=== PATIENT | female | born 1975 | race Caucasian/White ===

== ENCOUNTER 2018-01-04 11:59 | Day surgery (SDC) | payer OTHER, SELFPAY ==
[2017-12-31 14:58] VITALS: BMI 26.2
[2018-01-04] VITALS (8 sets, daily range): BP systolic 111–131; BP diastolic 65–80; PULSE 66–90; RESP 12–18; TEMP 36.3–37.1; O2SAT 98–100; BMI 25.5
--- NOTE | 2018-01-04 | PATH_ITS ---
[facility] Accession Number: [id number] . 01 Material submitted: . UTERINE FIBROID . 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 Negative for malignant features. [facility]/01/07/2018 . 02 Electronically signed: . Wero Monahan MD, PhD, Pathologist NPI- [id number] . 01 Gross description: . Received in formalin, labeled uterine fibroid, is a nolan-white, solid, firm, well-circumscribed nodule (6 g, 3.2 x 2.0 x 1.5 cm) with a white, whorled, homogenous cut surface. Sat Tutor serial sections are submitted in cassettes A1 and A2. ([id number]) /FRR . 02 Pathologist provided ICD-10: D25.9 . 02 CPT . 170311 Specimen Comment: A duplicate report has been generated due to demographic updates. Performed at: 01 [facility] [address] [facility], [place], [place] [id number] MD Noah Ron MD Phone: [phone] Performed at: 02 [facility] [address] [place], [place] [id number] MD Xander Shi MD Phone: [phone]
--- NOTE | 2018-01-04 12:29 | SUR.OPER ---
Lithotomy on padded OR bed, head on pillow, arms secured on padded arm boards at <90 degrees abduction. Legs secured in padded yellow fins stirrups.
[2018-01-04] MEDS: LACTATED RINGERS 1,000 ML 42 ML IV (12:36)
[2018-01-04] MEDS: CEFOTETAN 2 GM/50 ML PIGGYBACK IV (12:52)
--- NOTE | 2018-01-04 13:41 | PM.GYNOP.1 ---
Operative Date/Time/Diagnoses Date of procedure: 01/04/18 Time of procedure: 13:42 Pre-op diagnosis: Submucous myoma Menorrhagia Post-op diagnosis: same Procedure: Procedures Operation Date: 01/04/18 13:00 Actual Procedures Side Surgeon p Hysteroscopy D&C Pedro Adrian MD Indications: Menometrorrhagia Submucous myoma Surgeon: Pedro Adrian Anesthesia Type: General Operative Notes Findings: Submucous myoma 3 cm x 2 cm Closure Type: not applicable Specimen(s): other (Fibroid) Blood products transfused: none Procedure in detail: The patient is placed supine upon the operating table and anesthetized. She was then placed in the dorsal lithotomy position examined under anesthesia. Under anesthesia she was felt to have a normal uterus without masses. The patient was then draped and prepared in usual fashion. Posterior weighted retractor was set in place. Anterior lip the cervix tooth tenaculum. Uterine cavity sounded to 9 cm. Uterine cervix was dilated to a Hegar 12. The hysteroscope was introduced and a large submucous myoma was present arising from the fundus. The hysteroscope was withdrawn. The ring forceps and placed and the fibroid grasped. With a twisting action and pulling action the fibroid was removed without difficulty. There was minimal amount of bleeding. This posterior with a weighted retractor and tenaculum were removed. The patient was taken to the recovery room in satisfactory condition. Complications: none Post-operative Condition: stable Disposition: PACU Plan for aftercare: Office Dr. Hall two weeks
[2018-01-04] MEDS: OXYCODONE/ACETAMINOPHEN 5/325 TABLET 1 TAB PO (13:51)
== END 2018-01-04 14:54 | disposition home or self-care (01) ==
PROVIDERS: PCP Family Medicine
PROC: 0UDB8ZZ Extraction of Endometrium, Via Natural or Artificial Opening Endoscopic (ICD-10-PCS; CPT 58558; principal; 2018-01-04 13:00)
DX: D25.0 Submucous leiomyoma of uterus (principal)
CPT/HCPCS: 58558; J1100; J2250; J2405; J2704; J3010

== ENCOUNTER 2018-05-19 18:28 | Emergency (ER) | payer BC, SELFPAY ==
[2018-05-19 19:38] VITALS: BP 152/88; PULSE 103; RESP 18; TEMP 36.9; O2SAT 100; BMI 23.6
--- NOTE | 2018-05-19 19:46 | ED.URI ---
HPI - URI/Sore Throat <LOLIS Avila - Last Filed: 05/19/18 22:49> General Chief Complaint: Upper Respiratory Symptoms Stated Complaint: thinks she has pneumonia Time Seen by Provider: 05/19/18 19:03 Source: patient Mode of arrival: ambulatory Limitations: no limitations History of Present Illness HPI Narrative: 42-year-old healthy female that is a nonsmoker here for complaint of having cold/ flu like symptoms for the past 5-6 days. She states she has had a fever and chills. She has also had cough and nasal congestion. Generalized malaise. She is tolerating p.o. intake although she has had decreased appetite as of recently. She states she has been around her coworkers that have had similar symptoms. she denies any stressors or relievers of her symptoms. Related Data Home Medications Medication Instructions Recorded Confirmed VITAMIN D (Vitamin D3) 1,000 unit PO QDAY #0 01/09/12 04/01/18 ferrous gluconate 27 mg PO DAILY 01/04/18 04/01/18 Previous Rx's Medication Instructions Recorded L norgest/E estradiol-E estrad 1 tab PO DAILY #182 each 04/01/18 0.15 mg-30 mcg (84)/10 mcg(7) tabs,3mos Allergies Allergy/AdvReac Type Severity Reaction Status Date / Time measles, mumps, and rubella Allergy Unknown Unverified 04/01/18 10:29 vaccine [MEASLES, MUMPS, AND RUBELLA VACCINE] Review of Systems <LOLIS Avila - Last Filed: 05/19/18 22:49> Constitutional Reports body ache(s), Reports chills, Reports fever(s), Denies lethargy, Reports malaise and Denies weakness Eyes Denies change in vision, Denies eye discharge, Denies irritation and Denies loss of vision ENT Ears, Nose, Mouth, and Throat: Denies change in voice, Reports nasal congestion, Reports nasal discharge, Denies neck pain, Denies sore throat and Denies throat swelling Cardiovascular Denies chest pain, Denies irregular heart rhythm, Denies lightheadedness, Denies palpitations and Denies orthopnea Respiratory Reports cough and Denies wheezing Gastrointestinal Gastrointestinal: Denies abdominal pain, Denies change in bowel habits, Denies diarrhea, Denies nausea and Denies vomiting Genitourinary Denies hematuria, Denies flank pain, Denies urinary incontinence and Denies urinary urgency Musculoskeletal Denies neck pain Neurologic Denies confusion, Denies loss of vision and Denies weakness Psychiatric Denies anxiety, Denies confusion, Denies depression, Denies homicidal ideation and Denies suicidal ideation Endocrine Denies palpitations Allergic/Immunologic Denies urticaria, Denies throat swelling and Denies wheezing PFSH <LOLIS Avila - Last Filed: 05/19/18 22:49> Medical History Anemia (Resolved) Chicken pox (Resolved) Family History Grandfather Heart disease Grandmother Cancer Grandmother Mental health problem Social History household members: spouse and children Smoking Status: Never smoker alcohol intake: current Exam <LOLIS Avila - Last Filed: 05/19/18 22:49> Initial Vital Signs Initial Vital Signs: Vital Signs Temperature 98.4 F 05/19/18 19:38 Pulse Rate 103 H 05/19/18 19:38 Respiratory Rate 18 05/19/18 19:38 Blood Pressure 152/88 H 05/19/18 19:38 Pulse Oximetry 100 05/19/18 19:38 Const General: cooperative and well developed Nutritional Appearance: well nourished Orientation: alert, awake, oriented x3 and not confused HENLA Mouth: oral mucosae normal and moist mucous membranes Throat: posterior oropharynx normal Eyes Conjunctivae: conjunctivae normal Sclera: sclerae normal Pupils: PERRL EOM: EOM intact bilaterally Resp Effort & Inspection: normal respiratory effort, able to speak in complete sentences, no respiratory distress and no use of accessory muscles Auscultation: clear to auscultation bilaterally, no rales, no rhonchi and no wheezes Skin General: no rashes or lesions noted, No jaundice and No petechiae Neuro General: alert, oriented x3, gait normal and no focal motor deficits Speech: speech normal <Abena Mcfarlane DO - Last Filed: 05/20/18 02:50> Initial Vital Signs Initial Vital Signs: Vital Signs Temperature 98.4 F 05/19/18 19:38 Pulse Rate 103 H 05/19/18 19:38 Respiratory Rate 18 05/19/18 19:38 Blood Pressure 152/88 H 05/19/18 19:38 Pulse Oximetry 100 05/19/18 19:38 Course <LOLIS Avila - Last Filed: 05/19/18 22:49> Orders Ordered: ED Orders 05/19/18 19:47 XR chest 2V Stat 05/19/18 20:08 Influenza A and B by PCR Rapid Stat Vital Signs - 8 hr 05/19/18 19:38 05/19/18 20:28 05/19/18 20:58 Temperature 98.4 F 98.2 F Pulse Rate 103 H 81 Respiratory Rate 18 Blood Pressure 152/88 H Blood Pressure [Left Arm] 119/79 Pulse Oximetry 100 100 <Abena Mcfarlane DO - Last Filed: 05/20/18 02:50> Orders Ordered: ED Orders 05/19/18 19:47 XR chest 2V Stat 05/19/18 20:08 Influenza A and B by PCR Rapid Stat Vital Signs - 8 hr 05/19/18 19:38 05/19/18 20:28 05/19/18 20:58 Temperature 98.4 F 98.2 F Pulse Rate 103 H 81 Respiratory Rate 18 Blood Pressure 152/88 H Blood Pressure [Left Arm] 119/79 Pulse Oximetry 100 100 MDM - URI/Sore Throat <LOLIS Avila - Last Filed: 05/19/18 22:49> Lab Data Lab Results 05/19/18 Range/Units 20:08 Influenza A & B (PCR) Positive, type a A (Negative) Imaging Data Chest x-ray: Radiologist's impression: [address] [address] XRay Report Signed Patient: Jacqui Cho KMR#: [id number] : 1975Acct:[id number] Age/Sex: 42 / FDate of Service: 05/19/18 Loc: ED Accession Number: [id number] Procedure: XR chest 2V Ordering Provider: Elijah Vallejo PROCEDURE: XR CHEST 2V INDICATIONS: productive cough last several days TECHNIQUE: 2 views of the chest were acquired. COMPARISON: None. FINDINGS: Surgical changes and devices: None. Lungs and pleura: Lungs are clear. No pleural effusions or pneumothorax. Mediastinum: Mediastinal contours are normal. Heart size is normal. Bones and chest wall: No suspicious bony abnormalities. Soft tissues appear unremarkable. IMPRESSION: No acute process. Dictated by: Trini Valenzuela M.D. on 05/19/2018 at 19:59 Approved by: Trini Valenzuela M.D. on 05/19/2018 at 19:59 [facility] Narrative Medical decision making narrative: Chest x-ray was obtained and was negative for any acute findings. Influenza swab was obtained was positive for influenza A. plenty of fluids and rest. [id number]-[id number] Tylenol or Motrin as needed for any discomfort And fever. Saline irrigation and nasal passages and hot showers to help with nasal congestion. Follow up with primary care provider. Return emergency room for any worsening symptoms. <Abena Mcfarlane DO - Last Filed: 05/20/18 02:50> Lab Data Lab Results 05/19/18 Range/Units 20:08 Influenza A & B (PCR) Positive, type a A (Negative) Discharge Plan Departure Patient Disposition: Home Clinical Impression: Influenza Discharge Date/Time: 05/19/18 20:58 Interventions: ED Discharge Assessment Last Done: 05/19/18 20:58 Instructions: DI for Influenza -- Adult Activity Restrictions/Additional Instructions: Chest x-ray was obtained and was negative for any acute findings. Influenza swab was obtained was positive for influenza A. plenty of fluids and rest. Hlnn-lml-miqfzkc Tylenol or Motrin as needed for any discomfort And fever. Saline irrigation and nasal passages and hot showers to help with nasal congestion. Follow up with primary care provider. Return emergency room for any worsening symptoms. Prescriptions: No Action VITAMIN D (Vitamin D3) 1,000 unit PO QDAY Qty: 0 RF: 0 L norgest/e.estradiol-e.estrad [Seasonique] 0.15 mg-30 mcg (84)/10 mcg (7) tablets,dose pack,3 month 1 tab PO DAILY Qty: 182 RF: 2 ferrous gluconate 27 mg PO DAILY RF: 0 Referrals: Johanna Pearson DO [Primary Care Provider] - Stand Alone Forms: Work Release Note, Work/School Release <Abena Mcfarlane DO - Last Filed: 05/20/18 02:50> Cosign ED Attending Cossherryature Attestation: I was immediately available in the department for consultation. Documentation has been reviewed. I agree with assessment and plan.
[2018-05-19 20:28] VITALS: BP 119/79; PULSE 81; O2SAT 100
--- NOTE | 2018-05-19 20:45 | ED_ITS ---
HPI - URI/Sore Throat <LOLIS Avila - Last Filed: 05/19/18 22:49> General Chief Complaint: Upper Respiratory Symptoms Stated Complaint: thinks she has pneumonia Time Seen by Provider: 05/19/18 19:03 Source: patient Mode of arrival: ambulatory Limitations: no limitations History of Present Illness HPI Narrative: 42-year-old healthy female that is a nonsmoker here for complaint of having cold/ flu like symptoms for the past 5-6 days. She states she has had a fever and chills. She has also had cough and nasal congestion. Generalized malaise. She is tolerating p.o. intake although she has had decreased appetite as of recently. She states she has been around her coworkers that have had similar symptoms. she denies any stressors or relievers of her symptoms. Related Data Home Medications Medication Instructions Recorded Confirmed VITAMIN D (Vitamin D3) 1,000 unit PO QDAY #0 01/09/12 04/01/18 ferrous gluconate 27 mg PO DAILY 01/04/18 04/01/18 Previous Rx's Medication Instructions Recorded L norgest/E estradiol-E estrad 1 tab PO DAILY #182 each 04/01/18 0.15 mg-30 mcg (84)/10 mcg(7) tabs,3mos Allergies Allergy/AdvReac Type Severity Reaction Status Date / Time measles, mumps, and rubella Allergy Unknown Unverified 04/01/18 10:29 vaccine [MEASLES, MUMPS, AND RUBELLA VACCINE] Review of Systems <LOLIS Avila - Last Filed: 05/19/18 22:49> Constitutional Reports body ache(s), Reports chills, Reports fever(s), Denies lethargy, Reports malaise and Denies weakness Eyes Denies change in vision, Denies eye discharge, Denies irritation and Denies loss of vision ENT Ears, Nose, Mouth, and Throat: Denies change in voice, Reports nasal congestion, Reports nasal discharge, Denies neck pain, Denies sore throat and Denies throat swelling Cardiovascular Denies chest pain, Denies irregular heart rhythm, Denies lightheadedness, Denies palpitations and Denies orthopnea Respiratory Reports cough and Denies wheezing Gastrointestinal Gastrointestinal: Denies abdominal pain, Denies change in bowel habits, Denies diarrhea, Denies nausea and Denies vomiting Genitourinary Denies hematuria, Denies flank pain, Denies urinary incontinence and Denies urinary urgency Musculoskeletal Denies neck pain Neurologic Denies confusion, Denies loss of vision and Denies weakness Psychiatric Denies anxiety, Denies confusion, Denies depression, Denies homicidal ideation and Denies suicidal ideation Endocrine Denies palpitations Allergic/Immunologic Denies urticaria, Denies throat swelling and Denies wheezing PFSH <LOLIS Avila - Last Filed: 05/19/18 22:49> Medical History Anemia (Resolved) Chicken pox (Resolved) Family History Grandfather Heart disease Grandmother Cancer Grandmother Mental health problem Social History household members: spouse and children Smoking Status: Never smoker alcohol intake: current Exam <LOLIS Avila - Last Filed: 05/19/18 22:49> Initial Vital Signs Initial Vital Signs: Vital Signs Temperature 98.4 F 05/19/18 19:38 Pulse Rate 103 H 05/19/18 19:38 Respiratory Rate 18 05/19/18 19:38 Blood Pressure 152/88 H 05/19/18 19:38 Pulse Oximetry 100 05/19/18 19:38 Const General: cooperative and well developed Nutritional Appearance: well nourished Orientation: alert, awake, oriented x3 and not confused HENND Mouth: oral mucosae normal and moist mucous membranes Throat: posterior oropharynx normal Eyes Conjunctivae: conjunctivae normal Sclera: sclerae normal Pupils: PERRL EOM: EOM intact bilaterally Resp Effort & Inspection: normal respiratory effort, able to speak in complete sentences, no respiratory distress and no use of accessory muscles Auscultation: clear to auscultation bilaterally, no rales, no rhonchi and no wheezes Skin General: no rashes or lesions noted, No jaundice and No petechiae Neuro General: alert, oriented x3, gait normal and no focal motor deficits Speech: speech normal <Abena Mcfarlane DO - Last Filed: 05/20/18 02:50> Initial Vital Signs Initial Vital Signs: Vital Signs Temperature 98.4 F 05/19/18 19:38 Pulse Rate 103 H 05/19/18 19:38 Respiratory Rate 18 05/19/18 19:38 Blood Pressure 152/88 H 05/19/18 19:38 Pulse Oximetry 100 05/19/18 19:38 Course <LOLIS Avila - Last Filed: 05/19/18 22:49> Orders Ordered: ED Orders 05/19/18 19:47 XR chest 2V Stat 05/19/18 20:08 Influenza A and B by PCR Rapid Stat Vital Signs - 8 hr 05/19/18 19:38 05/19/18 20:28 05/19/18 20:58 Temperature 98.4 F 98.2 F Pulse Rate 103 H 81 Respiratory Rate 18 Blood Pressure 152/88 H Blood Pressure [Left Arm] 119/79 Pulse Oximetry 100 100 <Abena Mcfarlane DO - Last Filed: 05/20/18 02:50> Orders Ordered: ED Orders 05/19/18 19:47 XR chest 2V Stat 05/19/18 20:08 Influenza A and B by PCR Rapid Stat Vital Signs - 8 hr 05/19/18 19:38 05/19/18 20:28 05/19/18 20:58 Temperature 98.4 F 98.2 F Pulse Rate 103 H 81 Respiratory Rate 18 Blood Pressure 152/88 H Blood Pressure [Left Arm] 119/79 Pulse Oximetry 100 100 MDM - URI/Sore Throat <LOLIS Avila - Last Filed: 05/19/18 22:49> Lab Data Lab Results 05/19/18 Range/Units 20:08 Influenza A & B (PCR) Positive, type a A (Negative) Imaging Data Chest x-ray: Radiologist's impression: [address] [address] XRay Report Signed Patient: Jacqui Cho KMR#: [id number] : 1975Acct:[id number] Age/Sex: 42 / FDate of Service: 05/19/18 Loc: ED Accession Number: [id number] Procedure: XR chest 2V Ordering Provider: Elijah Vallejo PROCEDURE: XR CHEST 2V INDICATIONS: productive cough last several days TECHNIQUE: 2 views of the chest were acquired. COMPARISON: None. FINDINGS: Surgical changes and devices: None. Lungs and pleura: Lungs are clear. No pleural effusions or pneumothorax. Mediastinum: Mediastinal contours are normal. Heart size is normal. Bones and chest wall: No suspicious bony abnormalities. Soft tissues appear unremarkable. IMPRESSION: No acute process. Dictated by: Trini Valenzuela M.D. on 05/19/2018 at 19:59 Approved by: Trini Valenzuela M.D. on 05/19/2018 at 19:59 [facility] Narrative Medical decision making narrative: Chest x-ray was obtained and was negative for any acute findings. Influenza swab was obtained was positive for influenza A. plenty of fluids and rest. Crzk-lnb-dgkpvjj Tylenol or Motrin as needed for any discomfort And fever. Saline irrigation and nasal passages and hot showers to help with nasal congestion. Follow up with primary care provider. Return emergency room for any worsening symptoms. <Abena Mcfarlane DO - Last Filed: 05/20/18 02:50> Lab Data Lab Results 05/19/18 Range/Units 20:08 Influenza A & B (PCR) Positive, type a A (Negative) Discharge Plan Departure Patient Disposition: Home Clinical Impression: Influenza Discharge Date/Time: 05/19/18 20:58 Interventions: ED Discharge Assessment Last Done: 05/19/18 20:58 Instructions: DI for Influenza -- Adult Activity Restrictions/Additional Instructions: Chest x-ray was obtained and was negative for any acute findings. Influenza swab was obtained was positive for influenza A. plenty of fluids and rest. Wcte-ooh-suxkbvt Tylenol or Motrin as needed for any discomfort And fever. Saline irrigation and nasal passages and hot showers to help with nasal congestion. Follow up with primary care provider. Return emergency room for any worsening symptoms. Prescriptions: No Action VITAMIN D (Vitamin D3) 1,000 unit PO QDAY Qty: 0 RF: 0 L norgest/e.estradiol-e.estrad [Seasonique] 0.15 mg-30 mcg (84)/10 mcg (7) tablets,dose pack,3 month 1 tab PO DAILY Qty: 182 RF: 2 ferrous gluconate 27 mg PO DAILY RF: 0 Referrals: Johanna Pearson DO [Primary Care Provider] - Stand Alone Forms: Work Release Note, Work/School Release <Abena Mcfarlane DO - Last Filed: 05/20/18 02:50> Cosign ED Attending Cossherryature Attestation: I was immediately available in the department for consultation. Documentation has been reviewed. I agree with assessment and plan.
[2018-05-19 20:58] VITALS: TEMP 36.8
== END 2018-05-19 20:58 | disposition home or self-care (01) ==
PROVIDERS: Emergency Provider Nurse Practitioner Family; PCP Family Medicine
DX: J10.1 Influenza due to other identified influenza virus with other respiratory manifestations (principal)
CPT/HCPCS: 71046; 87400; 99282; 99283

== ENCOUNTER → 2018-05-21 14:40 | Outpatient (CLI) | payer OTHER, SELFPAY ==
--- NOTE | 2018-05-21 | DI.MG.S_ITS ---
BILATERAL DIGITAL SCREENING MAMMOGRAM 3D/2D WITH CAD: 05/21/2018 CLINICAL: Routine screening. Family history of breast cancer. Comparison is made to exams dated: 05/08/2017 mammogram and 05/02/2016 mammogram - [facility]. The tissue of both breasts is heterogeneously dense. This may lower the sensitivity of mammography. Current study was also evaluated with a Computer Aided Detection (CAD) system. No significant masses, calcifications, or other findings are seen in either breast. There has been no significant interval change. IMPRESSION: NEGATIVE There is no mammographic evidence of malignancy. A 1 year screening mammogram is recommended. This exam was interpreted at Station ID: [id number]. NOTE: For mammograms, a report in lay terms will be sent to the patient. Approximately 15% of breast malignancies will not be visualized mammographically. In the management of a palpable breast mass, a negative mammogram must not discourage biopsy of a clinically suspicious lesion. Electronically Signed By: Ileana sumner/charla:05/21/2018 15:16:49 letter sent: Normal Exam ACR BI-RADS Category 1: Negative 3341F
== END ==
PROVIDERS: PCP Family Medicine; Visit Provider Family Medicine
DX: Z12.31 Encounter for screening mammogram for malignant neoplasm of breast (principal); Z80.3 Family history of malignant neoplasm of breast
CPT/HCPCS: 77063; 77067

== ENCOUNTER → 2018-06-18 09:12 | Outpatient (CLI) | payer OTHER, SELFPAY ==
[2018-06-18 09:52] LABS: Add Manual Diff / Slide Review NO; Basophils Absolute Auto 0 /uL (0-100); Basophils Percent Auto 0.5 % (0-2); Eosinophils Absolute Auto 0 /uL (0-450); Eosinophils Percent Auto 0.9 % (2-4); Hematocrit 38.7 % (36-46); Hemoglobin 12.9 g/dL (12.0-16.0); Lymphocytes Absolute Auto 1200 /uL (1100-4500); Lymphocytes Percent Auto 22.2 % (25-40); Mean Corpuscular HGB Conc 33.3 % (30-36); Mean Corpuscular Hemoglobin 31.7 PG (26-34); Mean Corpuscular Volume 95.1 fL (80-100); Monocytes Absolute Auto 300 /uL (0-900); Monocytes Percent Auto 6.4 % (3-14); Neutrophils Absolute Auto 3800 /uL (1500-7000); Platelet Count 207 X10^3/uL (150-400); Red Blood Cell Count 4.07 X10^6/uL (4.0-5.2); Red Cell Distribution Width 13.9 % (11.6-14.8); White Blood Cell Count 5.4 X10^3/uL (4.5-11.0)
[2018-06-18 10:02] LABS: Alanine Aminotransferase 32 IU/L (9-52); Albumin 4.3 g/dL (3.5-5.0); Albumin Globulin Ratio 1.8 (1.0-2.8); Alkaline Phosphatase 39 U/L (38-126); Aspartate Aminotransferase 19 IU/L (14-36); BUN Creatinine Ratio 22.9 (6-22); Bilirubin Total 0.7 mg/dL (0.2-1.3); Blood Urea Nitrogen 16 mg/dL (7-17); Calcium 9.1 mg/dL (8.4-10.2); Carbon Dioxide 27 mmol/L (22-32); Chloride 103 mmol/L (98-107); Cholesterol 197 mg/dL (140-199); Estimated Glomerular Filt Rate > 60.0 mL/min (>60); Globulin 2.4 g/dL (1.7-4.1); Glucose 88 mg/dL (70-100); HDL Cholesterol 58 mg/dL (40-60); HEMOLYSIS < 15 (0-50); LDL Cholesterol Calculated 117 mg/dL (<100); Potassium 4.5 mmol/L (3.4-5.1); Sodium 138 mmol/L (137-145); Total Protein 6.7 g/dL (6.3-8.2); Triglycerides 112 mg/dL (35-150)
[2018-06-18 10:55] LABS: Thyroid Stimulating Hormone 0.74 uIU/mL (0.47-4.68)
== END ==
PROVIDERS: PCP Family Medicine; Visit Provider Nurse Practitioner
DX: D64.9 Anemia, unspecified (principal); Z86.39 Personal history of other endocrine, nutritional and metabolic disease
CPT/HCPCS: 36415; 80053; 80061; 84443; 85025

== ENCOUNTER → 2018-09-17 12:33 | Outpatient (CLI) | payer OTHER, SELFPAY ==
[2018-09-17 12:50] LABS: Hematocrit 40.1 % (36-46); Hemoglobin 13.5 g/dL (12.0-16.0)
== END ==
PROVIDERS: PCP Nurse Practitioner
DX: D50.9 Iron deficiency anemia, unspecified (principal)
CPT/HCPCS: 36415; 85014; 85018

== ENCOUNTER → 2019-08-05 14:30 | Outpatient (CLI) | payer OTHER, SELFPAY ==
--- NOTE | 2019-08-05 14:34 | DI.MG.S_ITS ---
BILATERAL DIGITAL SCREENING MAMMOGRAM 3D/2D WITH CAD: 08/05/2019 CLINICAL: Routine screening. Family history of breast cancer. Comparison is made to exams dated: 05/21/2018 mammogram, 05/08/2017 mammogram, and 05/02/2016 mammogram - [facility]. The tissue of both breasts is heterogeneously dense. This may lower the sensitivity of mammography. Current study was also evaluated with a Computer Aided Detection (CAD) system. No significant masses, calcifications, or other findings are seen in either breast. There has been no significant interval change. IMPRESSION: NEGATIVE There is no mammographic evidence of malignancy. A 1 year screening mammogram is recommended. This exam was interpreted at Station ID: [id number]. NOTE: For mammograms, a report in lay terms will be sent to the patient. Approximately 15% of breast malignancies will not be visualized mammographically. In the management of a palpable breast mass, a negative mammogram must not discourage biopsy of a clinically suspicious lesion. Electronically Signed By: Wei cerda/charla:08/05/2019 15:14:52 letter sent: Normal Exam ACR BI-RADS Category 1: Negative 3341F
== END ==
PROVIDERS: PCP Nurse Practitioner; Referring Provider Nurse Practitioner; Visit Provider Nurse Practitioner
DX: Z12.31 Encounter for screening mammogram for malignant neoplasm of breast (principal); Z80.3 Family history of malignant neoplasm of breast
CPT/HCPCS: 77063; 77067

== ENCOUNTER → 2020-08-09 15:13 | Outpatient (CLI) | payer OTHER, SELFPAY ==
--- NOTE | 2020-08-09 15:14 | DI.MG.S_ITS ---
BILATERAL DIGITAL SCREENING MAMMOGRAM 3D/2D WITH CAD: 08/09/2020 CLINICAL: Routine screening. Family history of breast cancer. Comparison is made to exams dated: 08/05/2019 mammogram, 05/21/2018 mammogram, and 05/08/2017 mammogram - [facility]. The tissue of both breasts is heterogeneously dense. This may lower the sensitivity of mammography. Current study was also evaluated with a Computer Aided Detection (CAD) system. No significant masses, calcifications, or other findings are seen in either breast. There has been no significant interval change. IMPRESSION: NEGATIVE There is no mammographic evidence of malignancy. A 1 year screening mammogram is recommended. This exam was interpreted at Station ID: [id number]. NOTE: For mammograms, a report in lay terms will be sent to the patient. Approximately 15% of breast malignancies will not be visualized mammographically. In the management of a palpable breast mass, a negative mammogram must not discourage biopsy of a clinically suspicious lesion. Electronically Signed By: Lucero christensen/charla:08/09/2020 16:26:52 letter sent: Normal Exam ACR BI-RADS Category 1: Negative 3341F
== END ==
PROVIDERS: PCP Nurse Practitioner; Referring Provider Nurse Practitioner; Visit Provider Nurse Practitioner
DX: Z12.31 Encounter for screening mammogram for malignant neoplasm of breast (principal)
CPT/HCPCS: 77063; 77067

== ENCOUNTER → 2020-12-06 10:03 | Outpatient (CLI) | payer OTHER, SELFPAY ==
[2020-12-06 11:54] LABS: Hematocrit 39.3 % (36-46); Hemoglobin 12.8 g/dL (12.0-16.0); Mean Corpuscular HGB Conc 32.5 % (30-36); Mean Corpuscular Hemoglobin 31.8 PG (26-34); Platelet Count 221 X10^3/uL (150-400); Red Blood Cell Count 4.01 X10^6/uL (4.0-5.2); White Blood Cell Count 4.8 X10^3/uL (4.5-11.0)
[2020-12-06 12:16] LABS: Alanine Aminotransferase 18 IU/L (<35); Albumin 4.4 g/dL (3.5-5.0); Albumin Globulin Ratio 1.9 (1.0-2.8); Alkaline Phosphatase 44 U/L (38-126); Aspartate Aminotransferase 29 IU/L (14-36); BUN Creatinine Ratio 17.5 (6-22); Bilirubin Total 0.9 mg/dL (0.2-1.3); Blood Urea Nitrogen 10 mg/dL (7-17); Calcium 9.3 mg/dL (8.4-10.2); Carbon Dioxide 29 mmol/L (22-32); Chloride 105 mmol/L (98-107); Cholesterol 178 mg/dL (140-199); Estimated Glomerular Filt Rate > 60.0 mL/min (>60); Globulin 2.3 g/dL (1.7-4.1); Glucose 87 mg/dL (70-100); HDL Cholesterol 78 mg/dL (40-60); HEMOLYSIS < 15 (0-50); LDL Cholesterol Calculated 90 mg/dL (<100); Potassium 4.5 mmol/L (3.4-5.1); Sodium 139 mmol/L (137-145); Total Protein 6.7 g/dL (6.3-8.2); Triglycerides 48 mg/dL (35-150)
[2020-12-06 12:34] LABS: Free T3, Triiodothyronine Free 3.34 pg/mL (2.77-5.27); Free T4, Direct Thyroxine 1.06 ng/dL (0.78-2.19)
[2020-12-06 12:47] LABS: Thyroid Stimulating Hormone 0.994 uIU/mL (0.47-4.68)
== END ==
PROVIDERS: PCP Nurse Practitioner; Referring Provider Nurse Practitioner; Visit Provider Nurse Practitioner
DX: Z00.00 Encounter for general adult medical examination without abnormal findings (principal)
CPT/HCPCS: 36415; 80053; 80061; 84439; 84443; 84481; 85027

== ENCOUNTER → 2021-08-29 13:53 | Outpatient (CLI) | payer OTHER, SELFPAY ==
--- NOTE | 2021-08-29 | DI.MG.S_ITS ---
BILATERAL DIGITAL SCREENING MAMMOGRAM 3D/2D WITH CAD: 08/29/2021 CLINICAL: Routine screening. Family history of breast cancer. Comparison is made to exams dated: 08/09/2020 mammogram, 08/05/2019 mammogram, and 05/21/2018 mammogram - [facility]. The tissue of both breasts is heterogeneously dense. This may lower the sensitivity of mammography. Current study was also evaluated with a Computer Aided Detection (CAD) system. There is a mole marker on the right breast. No significant masses, calcifications, or other findings are seen in either breast. There has been no significant interval change. IMPRESSION: NEGATIVE There is no mammographic evidence of malignancy. A 1 year screening mammogram is recommended. This exam was interpreted at Station ID: [id number]. NOTE: For mammograms, a report in lay terms will be sent to the patient. Approximately 15% of breast malignancies will not be visualized mammographically. In the management of a palpable breast mass, a negative mammogram must not discourage biopsy of a clinically suspicious lesion. Electronically Signed By: Morgan Florian acr/penrad:08/29/2021 14:49:58 letter sent: Normal Exam ACR BI-RADS Category 1: Negative 3341F
== END ==
PROVIDERS: PCP Nurse Practitioner; Referring Provider Nurse Practitioner; Visit Provider Nurse Practitioner
DX: Z12.31 Encounter for screening mammogram for malignant neoplasm of breast (principal); Z80.3 Family history of malignant neoplasm of breast
CPT/HCPCS: 77063; 77067

== ENCOUNTER → 2021-12-28 14:55 | Outpatient (CLI) | payer OTHER, SELFPAY ==
[2021-12-28 15:51] LABS: Add Manual Diff / Slide Review NO; Basophils Absolute Auto 0 /uL (0-100); Basophils Percent Auto 0.6 % (0-2); Eosinophils Absolute Auto 0 /uL (0-450); Eosinophils Percent Auto 0.7 % (2-4); Hematocrit 38.2 % (36-46); Hemoglobin 13.2 g/dL (12.0-16.0); Lymphocytes Absolute Auto 1600 /uL (1100-4500); Lymphocytes Percent Auto 28.2 % (25-40); Mean Corpuscular HGB Conc 34.5 % (30-36); Mean Corpuscular Hemoglobin 32.9 PG (26-34); Mean Corpuscular Volume 95.5 fL (80-100); Monocytes Absolute Auto 500 /uL (0-900); Neutrophils Absolute Auto 3600 /uL (1500-7000); Neutrophils Percent Auto 62.5 % (50-75); Platelet Count 195 X10^3/uL (150-400); Red Cell Distribution Width 12.9 % (11.6-14.8); White Blood Cell Count 5.8 X10^3/uL (4.5-11.0)
[2021-12-28 15:55] LABS: Appearance Urine UA CLEAR; Bilirubin Urine UA NEGATIVE (NEGATIVE); Color Urine UA YELLOW; Glucose Urine UA NEGATIVE (Negative); Ketones Urine UA 1+ (NEGATIVE); Leukocyte Esterase Urine UA TRACE (NEGATIVE); Nitrite Urine UA NEGATIVE (Negative); Occult Blood Urine UA NEGATIVE (Negative); Protein Urine UA NEGATIVE (Negative); Specific Gravity Urine UA <=1.005 (1.000-1.035); Urobilinogen Urine UA 0.2 E.U./dL (0.2)
[2021-12-28 15:56] LABS: pH Urine UA 5.5 (4.5-8.0)
[2021-12-28 16:08] LABS: Alanine Aminotransferase 18 IU/L (<35); Albumin 4.8 g/dL (3.5-5.0); Albumin Globulin Ratio 1.7 (1.0-2.8); Alkaline Phosphatase 55 U/L (38-126); Aspartate Aminotransferase 27 IU/L (14-36); BUN Creatinine Ratio 11.1 (6-22); Bilirubin Total 0.8 mg/dL (0.2-1.3); Blood Urea Nitrogen 7 mg/dL (7-17); Calcium 9.6 mg/dL (8.4-10.2); Carbon Dioxide 27 mmol/L (22-32); Chloride 103 mmol/L (98-107); Cholesterol 191 mg/dL (140-199); Estimated Glomerular Filt Rate > 60 mL/min (>60); Globulin 2.8 g/dL (1.7-4.1); Glucose 83 mg/dL (70-100); HDL Cholesterol 66 mg/dL (40-60); HEMOLYSIS < 15 (0-50); LDL Cholesterol Calculated 111 mg/dL (<100); Potassium 4.2 mmol/L (3.4-5.1); Sodium 141 mmol/L (137-145); Total Protein 7.6 g/dL (6.3-8.2); Triglycerides 68 mg/dL (35-150)
[2021-12-28 16:25] LABS: Bacteria Urine None Seen; Culture Indicated Urine Cult Not Indicated; RBC Urine None Seen (0-5/HPF); Squamous Epithelial Cell Urine 0-1 /HPF (0-5/HPF); WBC Urine 0-1/HPF (0-5/HPF)
[2021-12-28 16:30] LABS: Free T4, Direct Thyroxine 1.36 ng/dL (0.78-2.19)
[2021-12-28 16:43] LABS: Thyroid Stimulating Hormone 1.27 uIU/mL (0.47-4.68)
== END ==
PROVIDERS: PCP Nurse Practitioner; Referring Provider Nurse Practitioner; Visit Provider Nurse Practitioner
DX: Z00.00 Encounter for general adult medical examination without abnormal findings (principal); R30.0 Dysuria
CPT/HCPCS: 36415; 80053; 80061; 81001; 84439; 84443; 84481; 85025

== ENCOUNTER → 2022-01-04 15:51 | Outpatient (CLI) | payer OTHER, SELFPAY ==
--- NOTE | 2022-01-04 15:52 | DI.US.S_ITS ---
PROCEDURE: US PELVIC COMPLETE INDICATIONS: PAIN TECHNIQUE: Real-time scanning was performed of the pelvic organs, with image documentation. Additional endovaginal scanning was necessary due to incomplete visualization of the adnexal and endometrial structures by transabdominal scanning. COMPARISON: [facility], US, US PELVIC COMPLETE, 09/12/2019, 16:37. FINDINGS: Uterus: Uterus is anteverted and normal in size at 7.3 x 5 x 3.6 cm. The myometrium is heterogeneous. No discrete uterine fibroid is seen. The endometrium measures 7 mm combined thickness. No endometrial mass or fluid is seen. Intrauterine device is noted within its normal central endometrial location. Ovaries: The right ovary measures 2.1 x 1.5 x 1.5 cm, with a calculated ovarian volume of 2.5 cc. The left ovary measures 2.4 x 1.5 x 1.3 cm, with a calculated ovarian volume of 2.4 cc. The ovaries have a normal sonographic appearance. 3 x 3 x 2 mm echogenic focus is noted in right ovary. Less than 12 follicles can be seen in each ovary. No adnexal masses are seen. Other: No pathologic free abdominal or pelvic fluid. IMPRESSION: 1. Normal appearing uterus and endometrium. 2. Tiny echogenic focus is seen in right ovary which may represent calcification from prior infection/insult. No evidence of ovarian torsion. No solid appearing ovarian lesion. We strive to produce accurate, complete, and clear reports of imaging services. To assist us in improving patient care, this report was composed using standard report templates and voice recognition software. Therefore, it may contain abnormal punctuation, insertions and/or omissions. Occasional wrong-word or sound-alike substitutions may occur. Though we review the report and make efforts to correct it, we do recommend that the report be read carefully in proper context to recognize any text inaccuracies. Dictated by: Georgi Rivera M.D. on 01/04/2022 at 17:17 Approved by: Georgi Rivera M.D. on 01/04/2022 at 17:19
== END ==
PROVIDERS: PCP Nurse Practitioner; Referring Provider Nurse Practitioner; Visit Provider Nurse Practitioner
DX: Z30.431 Encounter for routine checking of intrauterine contraceptive device (principal); R10.2 Pelvic and perineal pain
CPT/HCPCS: 76830; 76856

== ENCOUNTER → 2022-01-16 15:40 | Outpatient (CLI) | payer OTHER, SELFPAY ==
[2022-01-16 16:22] LABS: COVID19 -Nasal RAPID Negative (Negative)
== END ==
PROVIDERS: PCP Nurse Practitioner; Visit Provider Surgery
DX: Z20.822 Contact with and (suspected) exposure to COVID-19 (principal); Z01.812 Encounter for preprocedural laboratory examination
CPT/HCPCS: 87635; C9803

== ENCOUNTER 2022-01-17 11:08 | Day surgery (SDC) | payer OTHER, SELFPAY ==
--- NOTE | 2022-01-17 | PATH_ITS ---
[facility] Accession Number: [id number] . 01 Material submitted: . rectum - RECTAL POLYP . 01 Diagnosis: Rectal Polyp, Biopsy: Tubular adenoma. MRV 01/19/2022 1330 Local . 01 Electronically signed: . Wero Monahan MD, PhD, Pathologist NPI- [id number] . 01 Gross description: . RECTAL POLYP: Received in formalin are 2 fragment(s) of pruitt, soft tissue measuring 0.1 x 0.1 x 0.1 cm to 0.3 x 0.3 x 0.2 cm submitted entirely in 1 cassette(s) /XANDER 01/18/2022 1907 Local . 01 Pathologist provided ICD-10: D12.8 . 01 CPT . 102589 Specimen Comment: A courtesy copy of this report has been sent to [phone] Performed at: 01 [facility] [address] [place] [address], [place], [place] [id number] MD Noah Ron MD Phone: [phone]
[2022-01-17 11:19] VITALS: BMI 26.6
[2022-01-17 11:24] VITALS: BP 140/82; PULSE 83; RESP 15; TEMP 36.3; O2SAT 100
[2022-01-17] MEDS: LACTATED RINGERS 1,000 ML 42 ML IV (11:27)
--- NOTE | 2022-01-17 11:48 | P.HP_ITS ---
History of Present Illness History of Present Illness Date Patient Seen: 01/17/22 Time Patient Seen: 11:54 Chief complaint: SDC Narrative: First colonoscopy, family history is a late 60's uncle. No symptoms. Patient History Medical History Anemia Chicken pox Surgical History Status post hysteroscopic myomectomy Family & Social History Family History Grandfather Heart disease Grandmother Cancer Grandmother Mental health problem Social History: household members spouse,children Tobacco & Substance use: Smoking Status Never smoker alcohol intake current alcohol intake frequency a few times a month Substance Use Type does not use Meds Home Medications and Allergies Home Medications Medication Instructions Recorded Confirmed Type levonorgestrel 20 mcg/24 hours (7 intrauterine 10/22/18 12/28/21 History yrs) 52 mg intrauterine device (Mirena) sodium,potassium,mag sulfates 17.5 See Rx Instructions PO .COMPLEX 01/09/22 01/17/22 Rx gram-3.13 gram-1.6 gram oral soln #354 mL (Suprep Bowel Prep Kit) Allergies Allergy/AdvReac Type Severity Reaction Status Date / Time measles, mumps, and rubella Allergy Unknown Verified 01/17/22 11:17 vaccine [MEASLES, MUMPS, AND RUBELLA VACCINE] Review of Systems Review of Systems ROS: Yes All systems reviewed with the patient and are negative except as otherwise documented Exam Vital Signs (past 8 hours): - 01/17/22 11:24 Temperature 97.4 F L Pulse Rate 83 Respiratory Rate 15 Blood Pressure 140/82 Pulse Oximetry 100 Oxygen Delivery Method Room Air Oxygen Delivery Method Room Air Const General: cooperative and healthy appearing Nutritional Appearance: average body habitus [facility] Head: normocephalic and atraumatic Eyes General: appearance normal, both eyes and all related structures Sclera: sclerae normal Neck Neck: full ROM and trachea midline Chest Chest: normal inspection of the chest Resp Effort & Inspection: normal respiratory effort Cardio Rate: regular rate Rhythm: regular rhythm GI Palpation: soft Skin General: no rashes or lesions noted Neuro General: patient alert, patient awake and patient oriented x3 Cognition: normal cognition Extrem General: normal to inspection and full ROM Psych Appearance: grossly normal Mental Status: mental status grossly normal Judgment: judgment good Assessment & Plan Assessment & Plan narrative: Screening colon cancer colonoscopy with MAC COVID-19 COVID-19 status: Negative Time Spent With Patient Time with patient: less than 30 minutes Critical Care time: I spent a total of [] minutes of critical care time on this patient's care today; this time is exclusive of procedural time.
--- NOTE | 2022-01-17 11:56 | PM.OP.COLON ---
Operative Date/Time/Diagnoses Date of procedure: 01/17/22 Time of procedure: 11:56 Pre-op diagnosis: colon cancer screening Post-op diagnosis: same Procedure & Clinicians Study performed: Colonoscopy with cold snare polypectomy, under MAC Same procedure as scheduled: Yes Indications: Colon cancer screening Surgeon: Areli Staples Procedure Notes Procedure in detail: Preop diagnosis: Colon cancer screening Postop diagnosis: Same Operative procedure: Colonoscopy with cold snare polypectomy Surgeon: Autumn Staples MD Anesthetic: Mac Findings: Scant small diverticulosis of the sigmoid colon. Single polyp in the colo rectal area approximately 4 mm in size. Procedure: Patient placed in a lateral position rectal exam performed showing normal tone no masses. Colonoscope inserted into the rectum and advanced to ileocecal valve with minimal difficulty. Insufflation extraction scope including a retroflex and the above findings. Impression: Single polyp taken with cold snare in the sigmoid rectal region. 4 mm in size. Scant diverticulosis of the sigmoid colon Plan: Repeat colonoscopy depending on the pathology of today's specimen. Findings: divertiulosis and polyp(s) Specimen(s): none sent (Single polyp of sigmoid rectal region) Complications: none Post-procedure Recommendations: Other recommendation(s) (Repeat colonoscopy dependent upon the pathology from today) Follow up: as needed Disposition: PACU
[2022-01-17 12:24] VITALS: BP 100/69; PULSE 78; RESP 22; TEMP 37.3; O2SAT 100
[2022-01-17 12:29] VITALS: BP 108/71; PULSE 72; RESP 15; TEMP 36.8; O2SAT 98
[2022-01-17 12:34] VITALS: BP 113/74; PULSE 77; RESP 19; O2SAT 100
[2022-01-17 12:38] VITALS: BP 113/78; PULSE 72; RESP 16; O2SAT 100
[2022-01-17 12:42] VITALS: BP 120/82; PULSE 71; RESP 18; O2SAT 100
== END 2022-01-17 12:59 | disposition home or self-care (01) ==
PROVIDERS: PCP Nurse Practitioner; Referring Provider Surgery; Visit Provider Surgery
PROC: 0DJD8ZZ Inspection of Lower Intestinal Tract, Via Natural or Artificial Opening Endoscopic (ICD-10-PCS; CPT 45378; principal; 2022-01-17 12:15)
DX: Z12.11 Encounter for screening for malignant neoplasm of colon (principal); K57.30 Diverticulosis of large intestine without perforation or abscess without bleeding; D12.8 Benign neoplasm of rectum
CPT/HCPCS: 45385; J2704; J3010

== ENCOUNTER → 2022-07-18 12:29 | Outpatient (CLI) | payer OTHER, SELFPAY ==
--- NOTE | 2022-07-18 12:35 | DI.RAD.S_ITS ---
PROCEDURE: XR LUMBAR SPINE 2-3V INDICATIONS: eval low back pain acute TECHNIQUE: 3 views of the lumbar spine were acquired. COMPARISON: [facility], , -SPINE 2-3 VIEWS, 10/17/2011, 11:37. FINDINGS: Bones: 5 [id number] vertebrae are present. There is normal bony alignment. No vertebral body compression fractures. No suspicious bony lesions. Mild degenerative disc changes throughout the lumbar spine. Mild L4-L5 and L5-S1 facet hypertrophy. Soft tissues: Overlying bowel gas pattern is normal. No suspicious soft tissue calcifications. IMPRESSION: 1. Multilevel degenerative disc disease. 2. Multilevel facet arthropathy. 3. No fracture. No acute osseous lesion. If symptoms and/or clinical suspicion for pathology persists, evaluation with MRI should be considered for further assessment. Dictated by: Kaley Yuen MD, PhD on 07/18/2022 at 14:40 Approved by: Kaley Yuen MD, PhD on 07/18/2022 at 14:40
== END ==
PROVIDERS: PCP Nurse Practitioner; Referring Provider Registered Nurse Diabetes Educator; Visit Provider Registered Nurse Diabetes Educator
DX: S39.012A Strain of muscle, fascia and tendon of lower back, initial encounter (principal); M51.36 Other intervertebral disc degeneration, lumbar region; M47.816 Spondylosis without myelopathy or radiculopathy, lumbar region; M47.817 Spondylosis without myelopathy or radiculopathy, lumbosacral region; X58.XXXA Exposure to other specified factors, initial encounter
CPT/HCPCS: 72100

== ENCOUNTER → 2022-09-01 11:00 | Outpatient (CLI) | payer OTHER, SELFPAY ==
--- NOTE | 2022-09-01 | DI.MG.S_ITS ---
BILATERAL DIGITAL SCREENING MAMMOGRAM 3D/2D WITH CAD: 09/01/2022 CLINICAL: Routine screening. Family history of breast cancer. Comparison is made to exams dated: 08/29/2021 mammogram, 08/09/2020 mammogram, and 08/05/2019 mammogram - [facility]. Both breasts are heterogeneously dense, which may obscure small masses (category c / 51-75% glandular tissue). Current study was also evaluated with a Computer Aided Detection (CAD) system. There is a mole marker on the right breast. No significant masses, calcifications, or other findings are seen in either breast. There has been no significant interval change. IMPRESSION: NEGATIVE There is no mammographic evidence of malignancy. A 1 year screening mammogram is recommended. Based on the Tyrer Cuzick model (a risk assessment model) the patient's lifetime risk is 19.2% and her 10 year risk is 4.0%. According to the ACR, ACS, and NCCN guidelines, an annual breast MRI exam along with mammogram is recommended if the patient's lifetime risk is 20% or greater. This exam was interpreted at Station ID: [id number]. NOTE: For mammograms, a report in lay terms will be sent to the patient. Approximately 15% of breast malignancies will not be visualized mammographically. In the management of a palpable breast mass, a negative mammogram must not discourage biopsy of a clinically suspicious lesion. Electronically Signed By: Wei cerda/charla:09/01/2022 15:37:48 letter sent: Normal Exam ACR BI-RADS Category 1: Negative 3341F
== END ==
PROVIDERS: PCP Nurse Practitioner; Referring Provider Nurse Practitioner; Visit Provider Nurse Practitioner
DX: Z12.31 Encounter for screening mammogram for malignant neoplasm of breast (principal); Z80.3 Family history of malignant neoplasm of breast
CPT/HCPCS: 77063; 77067

== ENCOUNTER → 2022-09-15 09:37 | Outpatient (CLI) | payer OTHER, SELFPAY | PROVIDERS: PCP Nurse Practitioner; Visit Provider Physician Assistant | DX: J02.9 Acute pharyngitis, unspecified (principal) | CPT/HCPCS: 87070 ==

== ENCOUNTER → 2023-05-09 15:46 | Outpatient (CLI) | payer OTHER, SELFPAY ==
[2023-05-09 17:30] LABS: Hematocrit 37.2 % (36-46); Hemoglobin 12.5 g/dL (12.0-16.0); Mean Corpuscular HGB Conc 33.7 % (30-36); Mean Corpuscular Hemoglobin 32.4 PG (26-34); Mean Corpuscular Volume 96.1 fL (80-100); Platelet Count 187 X10^3/uL (150-400); Red Blood Cell Count 3.87 X10^6/uL (4.0-5.2); Red Cell Distribution Width 13.3 % (11.6-14.8); White Blood Cell Count 5.4 X10^3/uL (4.5-11.0)
[2023-05-09 17:38] LABS: Alanine Aminotransferase 17 IU/L (<35); Albumin 4.4 g/dL (3.5-5.0); Albumin Globulin Ratio 1.7 (1.0-2.8); Alkaline Phosphatase 53 U/L (38-126); Aspartate Aminotransferase 27 IU/L (14-36); BUN Creatinine Ratio 16.9 (6-22); Bilirubin Total 0.9 mg/dL (0.2-1.3); Blood Urea Nitrogen 10 mg/dL (7-17); Calcium 9.3 mg/dL (8.4-10.2); Carbon Dioxide 26 mmol/L (22-32); Chloride 106 mmol/L (98-107); Cholesterol 172 mg/dL (140-199); Estimated Glomerular Filt Rate > 60 mL/min (>60); Globulin 2.6 g/dL (1.7-4.1); Glucose 77 mg/dL (70-100); HDL Cholesterol 70 mg/dL (40-60); HEMOLYSIS < 15 (0-50); LDL Cholesterol Calculated 90 mg/dL (<100); Potassium 4.6 mmol/L (3.4-5.1); Sodium 138 mmol/L (137-145); Triglycerides 59 mg/dL (35-150)
[2023-05-09 18:08] LABS: Creatinine Urine Random 91.3 mg/dL
[2023-05-09 18:08] LABS: Free T4, Direct Thyroxine 1.11 ng/dL (0.78-2.19)
[2023-05-09 18:16] LABS: Microalbumin Urine Random < 0.6 mg/dL (0-1.6)
[2023-05-09 18:22] LABS: Thyroid Stimulating Hormone 1.39 uIU/mL (0.47-4.68)
[2023-05-10 16:24] LABS: HIV 1 & 2 Ab/Ag 4th Gen Combo NEGATIVE (NEGATIVE); Hep C Virus Ab w/Reflex Quant NEGATIVE s/c (NEGATIVE)
== END ==
LOC: LAB 15:47
PROVIDERS: PCP Nurse Practitioner; Referring Provider Nurse Practitioner; Visit Provider Nurse Practitioner
DX: Z00.00 Encounter for general adult medical examination without abnormal findings (principal)
CPT/HCPCS: 36415; 80053; 80061; 82043; 82570; 84439; 84443; 84481; 85027; 86803; 87389

== ENCOUNTER → 2023-09-26 13:51 | Outpatient (CLI) | payer OTHER, SELFPAY ==
--- NOTE | 2023-09-26 13:51 | DI.MG.S_ITS ---
BILATERAL DIGITAL SCREENING MAMMOGRAM 3D/2D WITH CAD: 09/26/2023 CLINICAL: Routine screening. Family history of breast cancer. Comparison is made to exams dated: 09/01/2022 mammogram, 08/29/2021 mammogram, and 08/09/2020 mammogram - [facility]. Both breasts are heterogeneously dense, which may obscure small masses (category c / 51-75% glandular tissue). Current study was also evaluated with a Computer Aided Detection (CAD) system. No significant masses, calcifications, or other findings are seen in either breast. There has been no significant interval change. IMPRESSION: NEGATIVE There is no mammographic evidence of malignancy. A 1 year screening mammogram is recommended. Based on the Tyrer Cuzick model (a risk assessment model) the patient's lifetime risk is 19.1% and her 10 year risk is 4.2%. According to the ACR, ACS, and NCCN guidelines, an annual breast MRI exam along with mammogram is recommended if the patient's lifetime risk is 20% or greater. This exam was interpreted at Station ID: [id number]. NOTE: For mammograms, a report in lay terms will be sent to the patient. Approximately 15% of breast malignancies will not be visualized mammographically. In the management of a palpable breast mass, a negative mammogram must not discourage biopsy of a clinically suspicious lesion. Electronically Signed By: Efrem rolle/charla:09/26/2023 16:05:32 letter sent: Normal Exam ACR BI-RADS Category 1: Negative [id number]
== END ==
PROVIDERS: PCP Nurse Practitioner; Referring Provider Nurse Practitioner; Visit Provider Nurse Practitioner
DX: Z12.31 Encounter for screening mammogram for malignant neoplasm of breast (principal); Z80.3 Family history of malignant neoplasm of breast; R92.333 Mammographic heterogeneous density, bilateral breasts
CPT/HCPCS: 77063; 77067

== ENCOUNTER → 2024-11-14 09:59 | Outpatient (CLI) | payer OTHER, SELFPAY ==
[2024-11-14 11:11] LABS: Add Manual Diff / Slide Review NO; Hematocrit 37.3 % (36-46); Hemoglobin 12.8 g/dL (12.0-16.0); Lymphocytes Absolute Auto 1000 /uL (1100-4500); Mean Corpuscular HGB Conc 34.2 % (30-36); Mean Corpuscular Hemoglobin 33.3 PG (26-34); Mean Corpuscular Volume 97.2 fL (80-100); Platelet Count 192 X10^3/uL (150-400)
[2024-11-14 11:28] LABS: INR 1.0 (0.9-1.3); Prothrombin Time 11.1 SECONDS (9.4-12.5)
[2024-11-14 11:31] LABS: PTT Partial Thromboplastin Tim 31 SECONDS (25.1-36.5)
[2024-11-14 11:34] LABS: HEMOLYSIS < 15 (0-50); Iron 125 ug/dL (37-170)
[2024-11-14 11:46] LABS: Percent Iron Saturation 44 % (15-50); Total Iron Binding Capacity 285 ug/dL (265-497); Transferrin 238 mg/dL (206-381)
[2024-11-14 11:55] LABS: Vitamin D 25 Hydroxy (D3) 57.5 ng/mL (30.0-100.0)
[2024-11-14 12:12] LABS: Ferritin 47 ng/mL (6-137)
[2024-11-14 12:42] LABS: Folate 19.2 ng/mL (2.76-20.0); Vitamin B12 910 pg/mL (239-931)
== END ==
PROVIDERS: PCP Student in an Organized Health Care Education/Training Program; Referring Provider Student in an Organized Health Care Education/Training Program; Visit Provider Student in an Organized Health Care Education/Training Program
DX: R23.3 Spontaneous ecchymoses (principal); E55.9 Vitamin D deficiency, unspecified
CPT/HCPCS: 36415; 82306; 82607; 82728; 82746; 83540; 83550; 85025; 85610; 85730

== ENCOUNTER → 2025-01-15 10:53 | Outpatient (CLI) | payer OTHER, SELFPAY ==
[2025-01-15 11:11] LABS: Add Manual Diff / Slide Review NO; Hematocrit 39.8 % (36-46); Hemoglobin 13.8 g/dL (12.0-16.0); Lymphocytes Absolute Auto 1000 /uL (1100-4500); Mean Corpuscular HGB Conc 34.6 % (30-36); Mean Corpuscular Hemoglobin 32.8 PG (26-34); Mean Corpuscular Volume 94.8 fL (80-100); Platelet Count 185 X10^3/uL (150-400)
[2025-01-15 11:32] LABS: Alanine Aminotransferase 18 IU/L (<35); Albumin 4.8 g/dL (3.5-5.0); Albumin Globulin Ratio 2.0 (1.0-2.8); Alkaline Phosphatase 51 U/L (38-126); Blood Urea Nitrogen 12 mg/dL (7-17); Calcium 9.6 mg/dL (8.4-10.2); Carbon Dioxide 26 mmol/L (22-32); Chloride 105 mmol/L (98-107); Cholesterol 169 mg/dL (140-199); Estimated Glomerular Filt Rate > 60 mL/min (>60); Globulin 2.4 g/dL (1.7-4.1); Glucose 95 mg/dL (70-99); HDL Cholesterol 73 mg/dL (40-60); HEMOLYSIS < 15 (0-50); Hemoglobin A1C% w Est Avg Glu 4.7 % (4.0-6.0); Potassium 4.5 mmol/L (3.4-5.1); Sodium 141 mmol/L (137-145); Total Protein 7.2 g/dL (6.3-8.2); Triglycerides 49 mg/dL (35-150)
[2025-01-15 12:04] LABS: Thyroid Stimulating Hormone 1.05 uIU/mL (0.47-4.68)
[2025-01-15 12:08] LABS: Culture Indicated Urine Cult Not Indicated
[2025-01-15 15:22] LABS: Follicle Stimulating Hormone 53.4 mIU/mL
[2025-01-16 10:09] LABS: Eosinophils Percent Manual 1.0 % (2-4); Lymphocytes Percent Manual 41.0 % (25-45); Monocytes Percent Manual 9.0 % (2-11); Neutrophils Absolute Manual 1813 /uL (3000-5900); Segmented Neutrophils Percent 49.0 % (38-70); Total Cells Counted 100
[2025-01-16 10:11] LABS: RBC Morphology Normal Morphology
== END ==
PROVIDERS: PCP Student in an Organized Health Care Education/Training Program; Referring Provider Student in an Organized Health Care Education/Training Program; Visit Provider Student in an Organized Health Care Education/Training Program
DX: R41.89 Other symptoms and signs involving cognitive functions and awareness (principal); R53.83 Other fatigue; N95.1 Menopausal and female climacteric states; N92.1 Excessive and frequent menstruation with irregular cycle
CPT/HCPCS: 36415; 80053; 80061; 81015; 83001; 83036; 84443; 85007; 85025